=== PATIENT | female | born 1995 | race Caucasian/White ===

== ENCOUNTER 2022-01-02 22:16 | Emergency (ER) | payer BC, SELFPAY ==
[2022-01-02 22:20] VITALS: BP 143/77; PULSE 70; RESP 20; TEMP 36.4; O2SAT 100; BMI 28.0
[2022-01-02] MEDS: predniSONE 20 MG TABLET 60 MG PO (22:33)
[2022-01-02] MEDS: Famotidine 20 MG TABLET PO (22:33)
--- NOTE | 2022-01-02 22:41 | ED_ITS ---
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 Patient had [place] food tonight subsequently had shortness of breath, coughing sent in for further evaluation patient took a Benadryl with only moderate relief. No diaphoresis. No change in speech. Able to swallow her own saliva. Related Data Home Medications Medication Instructions Recorded Confirmed L norgest/E estradiol-E estrad 1 tab PO DAILY 01/02/22 01/02/22 0.15 mg-30 mcg (84)/10 mcg(7) tabs,3mos Previous Rx's Medication Instructions Recorded diphenhydramine HCl 25 mg capsule 25 mg PO Q8H 5 Days #15 cap 01/02/22 (Benadryl) epinephrine 0.3 mg/0.3 mL 0.3 mg (0.3 mL) IM ONCE PRN #1 ea 01/02/22 injection, auto-injector (EpiPen) famotidine 20 mg tablet (Pepcid) 20 mg PO BID 5 Days #10 tab 01/02/22 prednisone 20 mg tablet 40 mg PO DAILY #10 tab 01/02/22 Allergies Allergy/AdvReac Type Severity Reaction Status Date / Time shellfish derived Allergy Hives Verified 01/02/22 22:19 Review of Systems Verdana 4l Review of Systems: Verdana 4d Positive history of Verdana 4d allergies to seafood. Positive cough. No change in speech. Verdana 4d Yes all other systems are reviewed and are negative PMFSH Past Medical History Attestation statement: The following information was validated with the patient. Social History Social History Patient Tobacco Use Status: Never used Tobacco Use of substances other than those prescribed or required for medical reasons: No Advance Directives: No Advance Directives Information Provided: No Patient : No Physical Exam Verdana 4l Vital Signs: Verdana 4d Verdana 4d Vital Signs: Verdana 4d Verdana 4Bd Last Vital Signs Verdana 4d Pipe Fitter Gas Pipe New 4d Pipe Fitter Gas Pipe New 4d Temp 97.6 F 01/02/22 22:20 Pipe Fitter Gas Pipe New 4d Pulse 70 01/02/22 22:20 Pipe Fitter Gas Pipe New 4d Resp 20 02/05/22 22:20 BP 143/77 H 01/02/22 22:20 Pulse Ox 100 01/02/22 22:20 BMI result Body Mass Index 28.0 Appearance: Alert. Oriented X3. No acute distress. Eyes: Pupils equal, round and reactive to light. ENT: Pharynx normal. Neck: Normal inspection. Neck supple. No lymph nodes noted. No crepitus CVS: Normal heart rate and rhythm. Pulses normal. Normal S1 and S2 Respiratory: No respiratory distress. Breath sounds normal. No Wheezing. No rales Abdomen: Soft and nontender. No rigidity. No distention. good BS x4 Skin: Skin warm and dry. Normal skin color. Normal skin turgor. Extremities: No lower extremity edema. Neurovascular intact to all extremities. No Lacerations. No Rash Neuro: Oriented X 3. No motor deficit. No sensory deficit. Moving all extermities. No slurred speech MDM - Allergic Reaction MDM Narrative Medical decision making narrative: patient given steroids Pepcid monitor in the emergency department well appearing lungs are clear no distress will discharge patient home in Discharge Plan Discharge Clinical Impression: Allergic reaction Patient Disposition: Home, Self-Care Instructions: General Allergic Reaction (ED) Additional Instructions: Please avoid shellfish Prescriptions: New prednisone 20 mg tablet 40 mg PO DAILY Qty: 10 0RF famotidine [Pepcid] 20 mg tablet 20 mg PO BID 5 Days Qty: 10 0RF diphenhydramine HCl [Benadryl] 25 mg capsule 25 mg PO Q8H 5 Days Qty: 15 0RF epinephrine [EpiPen] 0.3 mg/0.3 mL auto-injector 0.3 mg IM ONCE PRN (Reason: extreme reaction) Qty: 1 0RF Rx Instructions: for 2 doses No Action L norgest/e.estradiol-e.estrad 0.15 mg-30 mcg (84)/10 mcg (7) tablets,dose pack,3 month 1 tab PO DAILY 0RF Referrals: Physician,Unknown J [Primary Care Provider] - 2 days
== END 2022-01-03 | disposition home or self-care (01) ==
PROVIDERS: Emergency Provider Emergency Medicine Emergency Medical Services
DX: T78.1XXA Other adverse food reactions, not elsewhere classified, initial encounter (principal); X58.XXXA Exposure to other specified factors, initial encounter
CPT/HCPCS: 99283; 99284